=== PATIENT | male | born 1985 | race Caucasian/White ===

== ENCOUNTER 2017-03-09 19:17 | Emergency (ER) | payer OTHER ==
[2017-03-09] MEDS ORDERED: Ondansetron ODT 4 MG TAB ONE (19:30)
--- NOTE | 2017-03-09 21:14 | CT ---
CT OF THE CHEST WITHOUT CONTRAST: Date: 03/09/[address] of the chest was done without oral or IV contrast for evaluation of a possible esophageal i mpaction. The patient presents with being unable to swallow any food or drink without vomiting. Axial slices were acquired, then coronal and sagittal reconstructions were done. FINDINGS: The esophagus is mildly distended with air down to the GE junction. It does have some fluid lying dep endently within it. At the GE junction, the lumen becomes somewhat solid in appearance and is slightl y more dense. An impacted piece of food here is presumed. Foodstuff is seen within the stomach itself . No extraluminal air or fluid was seen. There is a prominent lymph node or two seen in the vicinity of the diaphragm near the GE junction. The lungs are clear. There is no sign of infiltrate, effusion, or other parenchymal change. No medias tinal abnormalities were seen within the limitations of a noncontrast study. IMPRESSION: Findings strongly suggestive of food impaction at the gastroesophageal junction. Findings discussed with Dr. Rene at 2041 hours on 03/09/17. CODE CR. POS: HOME
[2017-03-09 21:37] LABS: #Basophils 0.1 thou/uL (0.0-0.2); #Eosinphils 0.4 thou/uL (0.0-0.7); #Lymphocytes 3.4 thou/uL (1.20-3.40); #Monocytes 0.5 thou/uL (0.11-0.59); #Neutrophils 4.9 thou/uL (1.40-6.50); %Basophils 1.1 % (0.0-1.0); %Eosinophils 4.8 % (0.0-10.0); %Lymphocytes 35.8 % (21.0-51.0); %Monocytes 5.7 % (0.0-10.0); %Neutrophils 52.7 % (42.0-75.0); Mean Corpuscular Hemoglobin 30.9 pg (27.0-31.0); Mean Corpuscular Volume 88.3 fl (80.0-94.0); Mean Platelet Volume 9.7 fL (7.4-10.4); Platelet Count 156 thou/uL (130-400); RBC Distribution Width 11.3 % (11.5-14.5); White Blood Cell (WBC) Count 9.4 thou/uL (4.8-10.8)
[2017-03-09] MEDS ORDERED: Pantoprazole 40 MG VIAL ONE (21:40)
[2017-03-09 21:49] LABS: ALT (SGPT) 52 U/L (8-55); AST (SGOT) 32 U/L (5-34); Albumin 4.5 g/dL (3.5-5.0); Alkaline Phosphatase 72 U/L (40-150); Anion Gap 17 mmol/L (10-20); BUN (Urea Nitrogen) 16 mg/dL (8.9-20.6); Bilirubin, Total 0.6 mg/dL (0.2-1.2); Calc. Creatinine Clearance 0 mL/min (70-130); Calcium 10.1 mg/dL (7.8-10.44); Carbon Dioxide 21 mmol/L (22-29); Chloride 107 mmol/L (98-107); Estimated GFR-MDRD Greater than 90; Globulin 3.3 g/dL (2.4-3.5); Glucose 109 mg/dL (70-105); Potassium 4.7 mmol/L (3.5-5.1); Protein, Total 7.8 g/dL (6.0-8.3); Sodium 140 mmol/L (136-145)
== END 2017-03-09 21:46 | disposition home or self-care (01) ==
LOC: BURERS 19:17
DX: T18.128A Food in esophagus causing other injury, initial encounter (principal); I10 Essential (primary) hypertension; K21.9 Gastro-esophageal reflux disease without esophagitis; Z79.899 Other long term (current) drug therapy
CPT/HCPCS: 71250; 80053; 85025; 96374; 96375; C9113; J1610; Q0162

== ENCOUNTER 2021-08-08 22:51 | Emergency (ER) | payer BC, OTHER, SELFPAY ==
[2021-08-08 23:55] LABS: #Basophils 0.1 thou/uL (0.0-0.2); #Eosinphils 0.2 thou/uL (0.0-0.7); #Lymphocytes 2.4 thou/uL (1.20-3.40); #Monocytes 0.5 thou/uL (0.11-0.59); #Neutrophils 4.7 thou/uL (1.40-6.50); %Basophils 0.8 % (0.0-1.0); %Eosinophils 2.6 % (0.0-10.0); %Lymphocytes 30.3 % (21.0-51.0); %Monocytes 6.6 % (0.0-10.0); %Neutrophils 59.7 % (42.0-75.0); Hemoglobin 16.5 g/dL (14.0-18.0); Mean Corpuscular HGB CONC 36.3 g/dL (32.0-36.0); Mean Corpuscular Hemoglobin 31.4 pg (27.0-31.0); Mean Corpuscular Volume 86.3 fL (78.0-98.0); Mean Platelet Volume 11.2 fL (7.4-10.4); Platelet Count 151 thou/uL (130-400); RBC Distribution Width 11.1 % (11.5-14.5); Red Blood Cell (RBC) Count 5.26 mill/uL (4.70-6.10); White Blood Cell (WBC) Count 7.8 thou/uL (4.8-10.8)
[2021-08-09 00:15] LABS: ALT (SGPT) 26 U/L (8-55); AST (SGOT) 16 U/L (5-34); Albumin 4.7 g/dL (3.5-5.0); Alkaline Phosphatase 62 U/L (40-110); Anion Gap 15 mmol/L (10-20); BUN (Urea Nitrogen) 14 mg/dL (8.9-20.6); Bilirubin, Total 0.6 mg/dL (0.2-1.2); Calc. Creatinine Clearance 0 mL/min (70-130); Calcium 9.3 mg/dL (7.8-10.44); Carbon Dioxide 23 mmol/L (22-29); Chloride 105 mmol/L (98-107); Globulin 2.8 g/dL (2.4-3.5); Glucose 116 mg/dL (70-105); Protein, Total 7.5 g/dL (6.0-8.3); Sodium 139 mmol/L (136-145)
== END 2021-08-09 00:25 | disposition home or self-care (01) ==
LOC: BURERS 22:51
DX: R07.2 Precordial pain (principal); I10 Essential (primary) hypertension; K21.9 Gastro-esophageal reflux disease without esophagitis; Z79.899 Other long term (current) drug therapy
CPT/HCPCS: 36415; 80053; 84484; 85025; 93005

== ENCOUNTER 2022-02-23 17:37 | Emergency (ER) | payer OTHER | END 2022-02-23 18:05 | disposition home or self-care (01) | LOC: BURERS 17:37 | DX: R53.81 Other malaise (principal); K21.9 Gastro-esophageal reflux disease without esophagitis; I10 Essential (primary) hypertension; Z79.899 Other long term (current) drug therapy | CPT/HCPCS: 99282 ==

== ENCOUNTER 2022-04-11 09:01 | Outpatient (CLI) | payer OTHER | END 2022-04-11 09:02 | disposition home or self-care (01) | LOC: BURRAD 09:01 | PROVIDERS: ATTEND Physician Assistant | DX: M25.551 Pain in right hip (principal) ==